=== PATIENT | female | born 1945 | race Caucasian/White ===

== ENCOUNTER 2018-08-03 08:07 | Emergency (ER) | payer MEDICARE, OTHER ==
[~2018-08-03] VITALS: Ht 157.5 cm; Wt 74.4 kg
[2018-08-03] MEDS ORDERED: ASPIR 8181 MG PO (08:19)
[2018-08-03 09:52] VITALS: BP 138/84
== END 2018-08-03 09:52 | disposition home or self-care (01) ==
LOC: M.ERS 08:07
DX: S01.112A Laceration without foreign body of left eyelid and periocular area, initial encounter (principal); W10.9XXA Fall (on) (from) unspecified stairs and steps, initial encounter; Y93.89 Activity, other specified; Y92.89 Other specified places as the place of occurrence of the external cause; Y99.8 Other external cause status

== ENCOUNTER 2019-01-28 14:31 | Emergency (ER) | payer MEDICARE, OTHER ==
[~2019-01-28] VITALS: Ht 157.5 cm; Wt 70.3 kg
[~2019-01-28 14:31] MED LIST: ASPIR 8181 MG PO
[2019-01-28] MEDS ORDERED: FIBER0.4 GM PO (14:44)
[2019-01-28] MEDS ORDERED: LIPITOR10 MG PO (14:44)
[2019-01-28 15:11] LABS: ABSOLUTE LYMPHOCYTES 1.1 thou/uL (0.8-5.3); ABSOLUTE MONOCYTES 0.8 thou/uL (0.0-1.2); ABSOLUTE NEUTROPHILS 8.6 thou/uL (1.6-8.1); BASOPHILS 0.2 %; EOSINOPHILS 0.1 %; HEMATOCRIT 40.5 % (37.0-47.0); HEMOGLOBIN 13.8 gm/dL (12.0-15.0); LYMPHOCYTES 10.7 %; MCH 28.3 pg (26.0-34.0); MCHC 34.1 g/dL (28.0-37.0); MONOCYTES 7.7 %; MPV 7.5 fl. (7.2-11.1); NUCLEATED RBCS 0 /100WBC; PLATELET COUNT* 180 thou/uL (150-400); POLYS 81.3 %; RBC 4.88 mil/uL (4.20-5.00); RDW-CV 13.1 % (10.5-14.5); WBC 10.6 thou/uL (4.0-11.0)
[2019-01-28 15:22] LABS: CALCIUM 8.9 mg/dL (8.5-10.1); CREATININE 0.7 mg/dL (0.6-1.3); POTASSIUM 3.6 mmol/L (3.5-5.1)
[2019-01-28 15:26] LABS: ALBUMIN 3.1 g/dL (3.4-5.0); TOTAL BILIRUBIN 0.9 mg/dL (<0.1-1.0); TOTAL PROTEIN 7.9 g/dL (6.4-8.2)
[2019-01-28 15:27] LABS: URINE BILIRUBIN NEGATIVE (Negative); URINE BLOOD TRACE (Negative); URINE CLARITY SL CLOUDY; URINE COLOR YELLOW; URINE GLUCOSE-RANDOM NEGATIVE (Negative); URINE KETONES NEGATIVE (Negative); URINE LEUKOCYTES-REFLEX TRACE (Negative); URINE PROTEIN NEGATIVE (Negative); URINE SPECIFIC GRAVITY 1.025 (1.005-1.030); URINE UROBILINOGEN 0.2 E.U./dl (0.2-1.0)
[2019-01-28 15:40] LABS: URINE NITRITE-REFLEX POSITIVE (Negative)
[2019-01-28 15:44] LABS: BACTERIA-REFLEX >30 Many /HPF (None Seen); SQUAMOUS NONE SEEN /LPF (0-3); URINE RBC 0-2 Rare /HPF (0-2); URINE WBC-REFLEX 6-15 Few /HPF (0-5)
[2019-01-28 15:45] LABS: CASTS None Seen /LPF (None Seen); CRYSTALS None Seen /LPF (None Seen); MUCUS None Seen strn/LPF (None Seen)
--- NOTE | 2019-01-28 15:47 | EKG ---
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1945 Requested By: Charbel Ely Order Number: [id number] MD: Angel Peres Measurements Intervals [place] Rate: 98 P: -17 AL: 149 QRS: -43 QRSD: 81 T: 10 QT: 318 QTc: 406 Interpretive Statements Sinus rhythm Abnormal R-wave progression, early transition Left ventricular hypertrophy Compared to ECG 07/17/2006 01:29:15 Left ventricular hypertrophy now present Electronically Signed On 01-28-2019 15:47:00 COMMUNITY DEVELOPMENT OFFICER by Angel Peres [email or web address] <ELECTRONICALLY SIGNED> By: Angel Peres MD, [facility] 01/28/19 1547 1455 1455 Angel Peres MD, FACC /EPI
[2019-01-28] MEDS ORDERED: ZOFRAN ODT4 MG DISSOLVE (18:17)
[2019-01-28] MEDS ORDERED: NORCO 5-325 TA1 EAC1 PO (18:17)
[2019-01-28] MEDS ORDERED: AUGMENTIN 875-1 EACH PO (18:17)
[2019-01-28 18:36] VITALS: BP 110/60
== END 2019-01-28 18:37 | disposition home or self-care (01) ==
LOC: M.ERS 14:31
PROVIDERS: Emergency Medicine Emergency Medical Services
DX: K52.9 Noninfective gastroenteritis and colitis, unspecified (principal); N39.0 Urinary tract infection, site not specified; E78.00 Pure hypercholesterolemia, unspecified; Z85.3 Personal history of malignant neoplasm of breast; Z90.10 Acquired absence of unspecified breast and nipple; Z90.49 Acquired absence of other specified parts of digestive tract

== ENCOUNTER 2020-10-12 12:20 | Emergency (ER) | payer MEDICARE, OTHER ==
[~2020-10-12] VITALS: Ht 160 cm; Wt 65.8 kg
[~2020-10-12 12:20] MED LIST changes: +AUGMENTIN 875-1 EACH PO; +FIBER0.4 GM PO; +LIPITOR10 MG PO; +NORCO 5-325 TA1 EAC1 PO; +ZOFRAN ODT4 MG DISSOLVE
[2020-10-12 13:57] LABS: ABSOLUTE EOSINOPHILS 0.2 thou/uL (0.0-0.7); ABSOLUTE LYMPHOCYTES 2.7 thou/uL (0.8-5.3); ABSOLUTE MONOCYTES 0.9 thou/uL (0.0-1.2); ABSOLUTE NEUTROPHILS 4.5 thou/uL (1.6-8.1); BASOPHILS 0.2 %; EOSINOPHILS 2.4 %; HEMATOCRIT 39.7 % (37.0-47.0); HEMOGLOBIN 12.7 gm/dL (12.0-15.0); LYMPHOCYTES 32.6 %; MCH 25.7 pg (26.0-34.0); MCHC 32.1 g/dL (28.0-37.0); MCV 80.1 fL (80.0-100.0); MONOCYTES 10.5 %; MPV 7.2 fl. (7.2-11.1); NUCLEATED RBCS 0 /100WBC; PLATELET COUNT* 212 thou/uL (150-400); POLYS 54.3 %; RBC 4.95 mil/uL (4.20-5.00); RDW-CV 14.3 % (10.5-14.5); WBC 8.2 thou/uL (4.0-11.0)
[2020-10-12 14:15] LABS: CALCIUM 8.7 mg/dL (8.5-10.1); POTASSIUM 3.9 mmol/L (3.5-5.1)
[2020-10-12 14:20] LABS: ALBUMIN 3.2 g/dL (3.4-5.0); TOTAL BILIRUBIN 0.6 mg/dL (<0.1-1.0); TOTAL PROTEIN 7.8 g/dL (6.4-8.2)
--- NOTE | 2020-10-12 15:34 | EKG ---
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: : 1945 Requested By: Patsy Walton Order Number: [id number] MD: Sebastian Tellez Measurements Intervals [place] Rate: 94 P: -12 [place]: 143 QRS: -36 QRSD: 85 T: 30 QT: 332 QTc: 416 Interpretive Statements Sinus rhythm Left ventricular hypertrophy Anterior Q waves, possibly due to LVH Compared to ECG 01/28/2019 14:55:59 Q waves now present Electronically Signed On 10-12-2020 15:34:15 CDT by Sebastian Tellez [email or web address] <ELECTRONICALLY SIGNED> By: Sebastian Tellez MD, [facility] 10/12/20 1534 1343 1343 Sebastian Tellez MD, [facility] /EPI
[2020-10-12] MEDS ORDERED: AUGMENTIN 500-1 EACH PO (16:09)
[2020-10-12] MEDS ORDERED: LOPERAMIDE 2 MG2 M1 PO (16:09)
[2020-10-12 16:37] VITALS: BP 124/68
== END 2020-10-12 16:38 | disposition home or self-care (01) ==
LOC: M.ERS 12:20
PROVIDERS: Physician Assistant
DX: K52.9 Noninfective gastroenteritis and colitis, unspecified (principal); E78.00 Pure hypercholesterolemia, unspecified; Z90.49 Acquired absence of other specified parts of digestive tract; Z85.3 Personal history of malignant neoplasm of breast

== ENCOUNTER 2020-10-30 17:06 | Inpatient (IN) | payer MEDICARE, OTHER ==
[~2020-10-30] VITALS: Ht 157.5 cm; Wt 64.4 kg
[~2020-10-30 17:06] MED LIST changes: +AUGMENTIN 500-1 EACH PO; +LOPERAMIDE 2 MG2 M1 PO
[2020-10-30 17:12] VITALS: BP 98/62
[2020-10-30 17:37] LABS: ABSOLUTE EOSINOPHILS 0.1 thou/uL (0.0-0.7); ABSOLUTE LYMPHOCYTES 1.4 thou/uL (0.8-5.3); ABSOLUTE MONOCYTES 0.6 thou/uL (0.0-1.2); ABSOLUTE NEUTROPHILS 4.1 thou/uL (1.6-8.1); BASOPHILS 0.3 %; EOSINOPHILS 0.9 %; HEMATOCRIT 36.4 % (37.0-47.0); HEMOGLOBIN 11.4 gm/dL (12.0-15.0); LYMPHOCYTES 22.7 %; MCH 24.8 pg (26.0-34.0); MCHC 31.4 g/dL (28.0-37.0); MCV 78.9 fL (80.0-100.0); MONOCYTES 9.9 %; MPV 7.2 fl. (7.2-11.1); NUCLEATED RBCS 0 /100WBC; PLATELET COUNT* 160 thou/uL (150-400); POLYS 66.2 %; RBC 4.62 mil/uL (4.20-5.00); RDW-CV 14.4 % (10.5-14.5); WBC 6.2 thou/uL (4.0-11.0)
[2020-10-30 17:46] LABS: CALCIUM 8.4 mg/dL (8.5-10.1); CREATININE 0.8 mg/dL (0.6-1.3); POTASSIUM 3.5 mmol/L (3.5-5.1)
[2020-10-30 17:50] LABS: ALBUMIN 2.9 g/dL (3.4-5.0); TOTAL BILIRUBIN 0.4 mg/dL (<0.1-1.0); TOTAL PROTEIN 7.1 g/dL (6.4-8.2)
[2020-10-30 20:20] LABS: URINE BILIRUBIN NEGATIVE (Negative); URINE BLOOD TRACE (Negative); URINE CLARITY SL CLOUDY; URINE COLOR YELLOW; URINE GLUCOSE-RANDOM NEGATIVE (Negative); URINE KETONES TRACE (Negative); URINE LEUKOCYTES-REFLEX 1+ (Negative); URINE PROTEIN NEGATIVE (Negative); URINE UROBILINOGEN 0.2 E.U./dl (0.2-1.0)
[2020-10-30 20:21] LABS: URINE NITRITE-REFLEX POSITIVE (Negative)
[2020-10-30 20:41] LABS: CASTS None Seen /LPF (None Seen); CRYSTALS None Seen /LPF (None Seen); MUCUS None Seen strn/LPF (None Seen); SQUAMOUS >10 Many /LPF (0-3)
[2020-10-30 20:42] LABS: BACTERIA-REFLEX >30 Many /HPF (None Seen); URINE WBC-REFLEX 0-5 Rare /HPF (0-5)
[2020-10-30 20:43] LABS: URINE RBC None Seen /HPF (0-2)
[2020-10-30 22:30] VITALS: BP 137/68
[2020-10-31 02:36] VITALS: BP 105/50
[2020-10-31 04:29] LABS: ABSOLUTE LYMPHOCYTES 1.1 thou/uL (0.8-5.3); ABSOLUTE MONOCYTES 0.1 thou/uL (0.0-1.2); ABSOLUTE NEUTROPHILS 3.8 thou/uL (1.6-8.1); HEMATOCRIT 33.5 % (37.0-47.0); HEMOGLOBIN 10.6 gm/dL (12.0-15.0); LYMPHOCYTES 21.2 %; MCH 25.1 pg (26.0-34.0); MCHC 31.7 g/dL (28.0-37.0); MCV 79.1 fL (80.0-100.0); MONOCYTES 2.5 %; MPV 7.5 fl. (7.2-11.1); NUCLEATED RBCS 0 /100WBC; PLATELET COUNT* 137 thou/uL (150-400); POLYS 76.3 %; RBC 4.23 mil/uL (4.20-5.00); RDW-CV 14.5 % (10.5-14.5)
[2020-10-31 04:41] LABS: CALCIUM 7.7 mg/dL (8.5-10.1); CREATININE 0.7 mg/dL (0.6-1.3); POTASSIUM 3.5 mmol/L (3.5-5.1)
[2020-10-31 06:08] VITALS: BP 114/53
[2020-10-31 09:56] VITALS: BP 107/52
[2020-10-31 11:07] LABS: CALCIUM 7.8 mg/dL (8.5-10.1); CREATININE 0.7 mg/dL (0.6-1.3); POTASSIUM 3.5 mmol/L (3.5-5.1)
[2020-10-31 11:10] LABS: MAGNESIUM 1.6 mg/dL (1.8-2.4); PHOSPHORUS* 2.8 mg/dL (2.5-4.9)
[2020-10-31 15:00] VITALS: BP 107/57
--- NOTE | 2020-10-31 15:48 | EKG ---
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 Helper: DELROY : 1945 Requested By: Barney Huber Order Number: [id number] MD: Ian Espinal Measurements Intervals [place] Rate: 95 P: -26 [place]: 142 QRS: -38 QRSD: 90 T: 38 QT: 340 QTc: 428 Interpretive Statements Sinus rhythm Low voltage, precordial leads Left ventricular hypertrophy Compared to ECG 10/12/2020 13:43:00 Low QRS voltage now present Q waves no longer present Electronically Signed On 10-31-2020 15:48:18 CDT by Ian Espinal [email or web address] <ELECTRONICALLY SIGNED> By: Ian Espinal MD, [facility] 10/31/20 1548 1732 1732 Ian Espinal MD, [facility] /EPI
--- NOTE | 2020-10-31 16:58 | 2DMMODE ---
[place] [address] 2 D/M-MODE ECHOCARDIOGRAM Name: GILBERTO LIZARRAGA Room: [address] IN .[place].#: [id number] Admission: 10/30/20 Attend Phys: Montez Fritz, Discharge: Date of : 47 Date of Service: 10/31/20 1658 Report #: [id number] THIS REPORT FOR: cc: Tete Shane MD, Ghazal A. MD Liston, Michael J. MD [facility] ~ APPROVED REPORT Study performed: 10/31/2020 14:13:33 EXAM: Comprehensive 2D, Doppler, and color-flow Echocardiogram Patient Location: In-Patient Room #: ER Status: routine BSA: 1.70 HR: 70 bpm BP: 120/59 mmHg Rhythm: NSR Other Information Study Quality: Good Indications RULE OUT ASCENDING AORTIC ANEURYSM 2D Dimensions IVSd: 9.55 (7-11mm) LVOT Diam: 20.62 (18-24mm) LVDd: 43.20 mm PWd: 9.84 (7-11mm) Ascending Ao: 34.86 (22-36mm) LVDs: 25.22 (25-40mm) Aortic Root: 34.74 mm Volumes Left Atrial Volume (Systole) LA ESV Index: 22.30 mL/m2 Aortic Valve AoV Peak Franco.: 1.44 m/s AO Peak Gr.: 8.25 mmHg LVOT Max P.10 mmHg AO Mean Gr.: 4.04 mmHg LVOT Mean P.97 mmHg LVOT Max V: 1.33 m/s AO V2 VTI: 26.74 cm LVOT Mean V: 0.77 m/s ALVARO (VTI): 3.24 cm2 LVOT V1 VTI: 25.92 [place] [address] 2 D/M-MODE ECHOCARDIOGRAM Name: ELHAMGILBERTO E Room: [address] IN [facility]#: [id number] Admission: 10/30/20 Attend Phys: Montez Fritz, Discharge: Date of : 47 Date of Service: 10/31/20 1658 Report #: [id number] Mitral Valve E/A Ratio: 0.68 MV Decel. Time: 236.20 ms MV E Max Franco.: 0.71 m/s MV PHT: 68.50 ms MVA (PHT): 3.21 cm2 TDI E/Lateral E': 5.46 E/Medial E': 5.92 Medial E' Franco.: 0.12 m/s Lateral E' Franco.: 0.13 m/s Pulmonary Valve PV Peak Franco.: 0.72 m/s PV Peak Gr.: 2.10 mmHg Tricuspid Valve RAP Estimate: 5.00 mmHg TR Peak Gr.: 22.03 mmHg RVSP: 27.00 mmHg PA Pressure: 27.00 mmHg Left Ventricle The left ventricle is normal size. There is normal LV segmental wall motion. There is normal left ventricular wall thickness. Left ventricular systolic function is normal. LVEF is 55-60%. Grade I - abnormal relaxation pattern. Right Ventricle The right ventricle is normal size. The right ventricular systolic function is normal. Atria The left atrium size is normal. The right atrium size is normal. Aortic Valve The aortic valve is normal in structure. No aortic regurgitation is present. There is no aortic valvular stenosis. Mitral Valve The mitral valve is normal in structure. Mild mitral regurgitation. No evidence of mitral valve stenosis. Tricuspid Valve The tricuspid valve is normal in structure. Trace tricuspid regurgitation. [place] [address] 2 D/M-MODE ECHOCARDIOGRAM Name: GILBERTO LIZARRAGA Room: [address] IN [facility]#: [id number] Admission: 10/30/20 Attend Phys: Montez Fritz, Discharge: Date of : 47 Date of Service: 10/31/20 1658 Report #: [id number] Pulmonic Valve The pulmonary valve is normal in structure. There is no pulmonic valvular regurgitation. Great Vessels The aortic root is normal in size. Visualized portions of the aortic root and ascending aorta are not dilated. IVC is normal in size and collapses >50% with inspiration. Pericardium There is no pericardial effusion. <Conclusion> The left ventricle is normal size. There is normal left ventricular wall thickness. Left ventricular systolic function is normal. LVEF is 55-60%. Grade I - abnormal relaxation pattern. There is normal LV segmental wall motion. Mild mitral regurgitation. Trace tricuspid regurgitation. No pulmonary hypertension. IVC is normal in size and collapses >50% with inspiration. Visualized portions of the aortic root and ascending aorta are not dilated. Consider CTA of the chest for further evaluation of the aortic arch if clinically indicated. <ELECTRONICALLY SIGNED> By: Angel Peres MD, FACC 10/31/208 57 57 Angel Peres MD, FACC /INF
[2020-10-31 18:36] VITALS: BP 101/48
[2020-10-31 22:30] VITALS: BP 104/54
[2020-11-01] VITALS (7 sets, daily range): BP systolic 110–122; BP diastolic 53–57
[2020-11-01 01:18] LABS: ABSOLUTE LYMPHOCYTES 1.4 thou/uL (0.8-5.3); ABSOLUTE MONOCYTES 0.8 thou/uL (0.0-1.2); ABSOLUTE NEUTROPHILS 3.1 thou/uL (1.6-8.1); HEMOGLOBIN 10.6 gm/dL (12.0-15.0); MCH 25.5 pg (26.0-34.0); MCV 79.6 fL (80.0-100.0); MPV 7.7 fl. (7.2-11.1); NUCLEATED RBCS 0 /100WBC; PLATELET COUNT* 161 thou/uL (150-400); RBC 4.15 mil/uL (4.20-5.00); RDW-CV 14.3 % (10.5-14.5); WBC 5.3 thou/uL (4.0-11.0)
[2020-11-01 01:27] LABS: CREATININE 0.8 mg/dL (0.6-1.3); POTASSIUM 4.1 mmol/L (3.5-5.1)
--- NOTE | 2020-11-01 15:12 | NUR ---
RECIEVED REPORT FROM NURA RN IN ER OF EXPECTED ADMISSION AT 1200- DX: DIARRHEA, WEAKNESS, COLITIS- PT ARRIVED TO ROOM 223 VIA BED AT 1225- M/S STATUS IN PLACE ORDERED- PT A&O X4- CONT OF BOWEL, REPORTS TO SELF CATH R/T RETENTION, LAT DONE IN ER- UP AD-ROSITA, STEADY GAIT- VSS, O2 SAT 93% ON 3L VIA NC- ABD SOFT/ROUND/[id number] REPORTS TO HAVE HAD BOUGHT OF DIRRHEA PRIOR TO ADMIT TO FLOOR, DENIES NAUSEA AT THIS TIME- IV NOTED TO LEFT AC INTACT, IVF INFUSSING PRESCRIBED- FAIR PO INTAKE NOTED- ECHO NOTED TO ORDERED- PT DENIES AND OPEN WOUNDS/SOARS- DENIES ANY C/O PAIN- CALL LIGHT AND PERSONAL BELONGINGS WITH IN REACH- HOURLY ROUNDS IN PLACE R/T SAFETY/NEEDS- ALL NEEDS MET AT THIS TIME
--- NOTE | 2020-11-02 05:47 | NUR ---
PT AO X4 LYING IN BED AT TIME OF ASSESSMENT, PT HAS HAD DIARRHEA FOR SEVERAL DAYS AND TODAY LABS REVEALED SHE IS +Cdiff. PT IS ON 3L NC, LUNGS DIMINISHED WITH NONPRODUCTIVE COUGH. FLUIDS INFUSING PER ORDER. PT VOIDS PER STRAIGHT CATH, HER IS TO BRING SUPPLIES FROM HOME TODAY. CALL LIGHT IN REACH AND BED ALARM ON FOR SAFETY
[2020-11-02 08:01] VITALS: BP 109/61
--- NOTE | 2020-11-02 11:39 | NUR ---
ASSUMED CARE OF PT THIS AM AROUND 0715- M/S STATUS IN PLACE- UPON ASSESSMENT PT NOTED TO BE RESTING IN BED- PT A&O X4- CONT OF BOWEL; USUALLY STRAIGHT CATHS SELF, HOWEVER HAS NOT DELIVED HOME SUPPLIES AND PT UNABLE TO USE OURS- ORDER OBTAINED FOR STRAIGHT CATHS- STRAIGHT CATH THIS AM AROUND 1030 NOTED WITH 2400CC OUTPUT- LCTA, RESP EVEN AND UN-LABORED- VSS, O2 SAT 91% ON RA- ABD SOFT/ROUND/NON-TENDER, BS X4 QUADS-BM NOTED THIS AM- ISOLATION IN PLACE AND MAINTAINED INDICATED R/T C-DIFF- IV NOTED TO LEFT AC INTACT AND SL- IVF NOTED TO BE D/C'D THIS AM- ONE TIME ORDERED FOR LSIX 40MG ORDERED AND GIVEN PRESCIBED THIS AM- IV ROCEPHIN D/C'D AND ORAL VAN ORDERED WITH 1ST DOSE GIVEN- IV LEVAQUIN ORDERED WITH 1ST DOSE GIVEN THIS AM- PT DENIES PAIN- C/O NAUSEA WITH EMESIS NOTED THIS AM; PRN ZOFRAN GIVEN AT 1120- POOR PO INTAKE NOTED THIS AM- CALL LIGHT AND PERSONAL BELONGINGS WITH IN REACH- ALL NEEDS MET AT THIS TIME
--- NOTE | 2020-11-02 12:36 | NUR ---
CONTINUE POC PER MD ORDER FOR CURRENT DX. PT DOWN TO 4L OF O2. CONT ON IV STERIODS. PER NICA, INSURANCE DENIED ARU. PEER TO PEER SCHEDULED. ISM ACCEPTING OF PT IS NEEDS SNF.
[2020-11-02 16:00] VITALS: BP 112/63
--- NOTE | 2020-11-02 16:02 | NUR ---
CM SPK WITH PT TO COMPLETE THE INITIAL ASSESSMENT. PT LIVES HOME WITH SPOUSE. PT IS ACTIVE DOING OWN CHORES AND DRIVES A VEHICLE. PT HAS NO DMES. PT DENIES HX WITH HH OR SNF. PT IS INDEPENDENT WITH ADLS. CM TO CONT TO FOLLOW TO ASSIST W/ANY DC NEEDS.
[2020-11-02 19:45] VITALS: BP 109/57
[2020-11-03 01:02] VITALS: BP 113/60
--- NOTE | 2020-11-03 04:59 | NUR ---
PT A&O X 4. SAT 92 % ON 2L. MEDS GIVEN ORDERED. DENIED PAIN. NO C/O NAUSEA OR DIARRHEA. UP WITH SBA. ISOLATION MAINTAINED FOR CDIFF. CALL LIGHT WITHIN REACH. WILL CONTINUE TO MONITOR.
[2020-11-03 05:06] VITALS: BP 112/61
[2020-11-03 08:00] VITALS: BP 104/60
--- NOTE | 2020-11-03 11:24 | NUR ---
I AGREE WITH TEJINDER RANDHAWA'S DOCUMENTATION. TAINA SIMMS, JOSHUAT
[2020-11-03] MEDS ORDERED: VANCOMYCIN HCL125 MG PO (13:52)
--- NOTE | 2020-11-03 13:55 | NUR ---
Case and plan of care reviewed with MD each weekday during patient's length of stay. Continue plan of care per MD orders for current dx. Plan is for discharge tomorrow or Friday with HH need. spoke to Asif and pt, both decline need for HH services. They are together 30/09 and Asif states he can help her with whatever she needs.they only have one step into house. Notfied Dr Parker. CM will continue to follow for discharge planning assistance as needed.
[2020-11-03 16:00] VITALS: BP 124/68
--- NOTE | 2020-11-03 16:43 | NUR ---
ASSESSMENT REMAINS UNCHANGED. NO COMPLAINTS OF NAUESA OR ABD PAIN, TOLERATING DIET. POSSIBLE DC TOMORROW. AT BEDSIDE MOST OF SHIFT. CALL LIGHT WITHIN REACH, WILL CONTINUE TO MONITOR.
--- NOTE | 2020-11-03 18:19 | NUR ---
PATIENT REPORTING HAD 1 LOOSE SOFT UNFORMED STOOL DURING THIS SHIFT.
[2020-11-03 19:45] VITALS: BP 122/65
[2020-11-04 01:18] VITALS: BP 114/54
--- NOTE | 2020-11-04 04:18 | NUR ---
PT A&O X 4. VSS ON RA. MEDS GIVEN ORDERED. NO C/O PAIN, N/V. UP WITH SBA. ISO MAINTAINED. CALL LIGHT WITHIN REACH. WILL CONTINUE TO MONITOR.
[2020-11-04 04:23] LABS: ALBUMIN 2.3 g/dL (3.4-5.0); CREATININE 0.7 mg/dL (0.6-1.3); MAGNESIUM 1.7 mg/dL (1.8-2.4); POTASSIUM 3.2 mmol/L (3.5-5.1); TOTAL BILIRUBIN 0.4 mg/dL (<0.1-1.0); TOTAL PROTEIN 5.9 g/dL (6.4-8.2)
[2020-11-04 04:36] LABS: HEMATOCRIT 33.4 % (37.0-47.0); MCH 25.3 pg (26.0-34.0); MCHC 32.8 g/dL (28.0-37.0); MCV 77.2 fL (80.0-100.0); MPV 7.5 fl. (7.2-11.1); RBC 4.33 mil/uL (4.20-5.00); RDW-CV 14.3 % (10.5-14.5); WBC 4.2 thou/uL (4.0-11.0)
[2020-11-04 08:00] VITALS: BP 124/71
[2020-11-04] MEDS ORDERED: LEVOFLOXACIN500 MG PO (09:44)
[2020-11-04 13:26] VITALS: BP 124/71
--- NOTE | 2020-11-04 14:43 | NUR ---
patient IV taken out, put own clothes on, has all belongings, given d/c papers and scripts. Verbalized understanding. Taken out by wheelchair to vehicle.
== END 2020-11-04 14:40 | disposition home or self-care (01) | DRG 177 ==
LOC: M.ERS 17:06 → M.TBA-ER 18:40 → M.2W 11-01 12:28
PROVIDERS: Family Medicine; Internal Medicine; ADMIT Internal Medicine; ATTEND Internal Medicine
DX: J15.6 Pneumonia due to other Gram-negative bacteria (principal); J96.91 Respiratory failure, unspecified with hypoxia; A04.72 Enterocolitis due to Clostridium difficile, not specified as recurrent; I71.2 Thoracic aortic aneurysm, without rupture; E78.00 Pure hypercholesterolemia, unspecified; Z20.822 Contact with and (suspected) exposure to COVID-19; Z85.3 Personal history of malignant neoplasm of breast; Z90.49 Acquired absence of other specified parts of digestive tract; Z90.10 Acquired absence of unspecified breast and nipple; Z79.899 Other long term (current) drug therapy